=== PATIENT | female | born 1990 | race Caucasian/White ===

== ENCOUNTER 2022-12-07 00:13 | Emergency (ER) | payer SELFPAY ==
[~2022-12-07] VITALS: Ht 172.7 cm; Wt 80.0 kg
[2022-12-07 00:19] VITALS: BP 114/88
[2022-12-07] MEDS ORDERED: CYCL5TAB MT (05:50)
[2022-12-07] MEDS ORDERED: NAPR-681 MT (05:50)
[2022-12-07] MEDS ORDERED: LIDO700A15 TP (05:50)
== END 2022-12-07 06:09 | disposition home or self-care (01) ==
LOC: ER 00:13
DX: S40.011A Contusion of right shoulder, initial encounter (principal); S09.90XA Unspecified injury of head, initial encounter; S16.1XXA Strain of muscle, fascia and tendon at neck level, initial encounter; F41.9 Anxiety disorder, unspecified; X58.XXXA Exposure to other specified factors, initial encounter; Y93.89 Activity, other specified; Y92.89 Other specified places as the place of occurrence of the external cause; Y99.8 Other external cause status
CPT/HCPCS: 73030; 81025; 99284